=== PATIENT | male | born 1935 | race Caucasian/White ===

== ENCOUNTER 2017-05-09 11:59 | Emergency (ER) | payer MEDICARE, OTHER ==
[2017-05-09 12:56] LABS: #Lymphocytes 0.6 thou/uL (1.20-3.40); #Monocytes 0.6 thou/uL (0.11-0.59); #Neutrophils 6.5 thou/uL (1.40-6.50); %Basophils 0.3 % (0.0-1.0); %Eosinophils 0.2 % (0.0-10.0); %Lymphocytes 7.4 % (21.0-51.0); %Monocytes 7.7 % (0.0-10.0); Anion Gap 16 mmol/L (10-20); BUN (Urea Nitrogen) 20 mg/dL (8.4-25.7); Calc. Creatinine Clearance 0 mL/min (70-130); Calcium 8.4 mg/dL (7.8-10.44); Carbon Dioxide 22 mmol/L (23-31); Chloride 108 mmol/L (98-107); Estimated GFR-MDRD 65; Hematocrit 39.4 % (42.0-52.0); Red Blood Cell (RBC) Count 4.21 mill/uL (4.70-6.10); White Blood Cell (WBC) Count 7.7 thou/uL (4.8-10.8)
[2017-05-09 13:00] LABS: Bilirubin Small (Negative); Blood, Urine Negative (Negative); Glucose, Urine (Dipstick) Negative (Negative); Ketone, Urine 15 mg/dL (Negative); Nitrite Negative (Negative); Protein, Urine (Dipstick) 30 mg/dL (Neg-Trace); Urobilinogen 0.2 mg/dL (0.2-1.0)
[2017-05-09 13:00] LABS: Troponin I 0.018 ng/mL (< 0.028)
[2017-05-09 13:06] LABS: Bacteria/HPF 1+ HPF (None Seen); Squamous Epithelial 0-3 HPF (0-3); WBC/HPF 0-3 HPF (0-3)
[2017-05-09 13:08] LABS: Hyaline Casts/LPF 0-3 HYALINE CAST LPF (0-3 Hyaline)
--- NOTE | 2017-05-09 14:26 | RAD ---
2 VIEWS CHEST: Date: 05/09/17 HISTORY: Fever. FINDINGS: PA and lateral views chest obtained. The lungs are well aerated. No evidence of active intrathoracic disease is seen. No evidence of effus ions, pneumonia, or pneumothorax seen. IMPRESSION: Normal 2 views chest. POS: [facility]
== END 2017-05-09 13:35 | disposition home or self-care (01) ==
LOC: SCSER 11:59
DX: B34.9 Viral infection, unspecified (principal)
CPT/HCPCS: 36415; 71020; 80048; 81003; 81015; 82553; 84484; 85025; 93005

== ENCOUNTER 2017-08-01 09:51 | Emergency (ER) | payer MEDICARE, OTHER ==
[2017-08-01 10:15] LABS: #Lymphocytes 0.8 thou/uL (1.20-3.40); #Monocytes 0.7 thou/uL (0.11-0.59); #Neutrophils 10.9 thou/uL (1.40-6.50); %Basophils 0.3 % (0.0-1.0); %Monocytes 5.4 % (0.0-10.0); %Neutrophils 88.2 % (42.0-75.0); Hemoglobin 13.9 g/dL (14.0-18.0); Mean Corpuscular HGB CONC 34.4 g/dL (32.0-36.0); Mean Corpuscular Hemoglobin 31.1 pg (27.0-31.0); Mean Corpuscular Volume 90.6 fl (80.0-94.0); Mean Platelet Volume 9.5 fL (7.4-10.4); Platelet Count 133 thou/uL (130-400); RBC Distribution Width 11.6 % (11.5-14.5); Red Blood Cell (RBC) Count 4.46 mill/uL (4.70-6.10); White Blood Cell (WBC) Count 12.3 thou/uL (4.8-10.8)
[2017-08-01 10:27] LABS: Anion Gap 16 mmol/L (10-20); BUN (Urea Nitrogen) 18 mg/dL (8.4-25.7); CK (CPK) 66 U/L (30-200); Calc. Creatinine Clearance 0 mL/min (70-130); Calcium 9.1 mg/dL (7.8-10.44); Carbon Dioxide 21 mmol/L (23-31); Chloride 107 mmol/L (98-107); Estimated GFR-MDRD 61; Glucose 148 mg/dL (83-110); Sodium 140 mmol/L (136-145)
[2017-08-01 10:31] LABS: CKMB 1.2 ng/mL (0-6.6); Troponin I Less than 0.010 ng/mL (< 0.028)
--- NOTE | 2017-08-01 13:23 | RAD ---
CHEST PA AND LATERAL: HISTORY: An 82-year-old male with a history of abdominal pain with nausea and vomiting and weakness. COMPARISON: 05/09/17. FINDINGS: Patchy alveolar parenchymal changes noted in the right mid and lower lung zone which appears to be in the right lower lobe including the superior segment of the right lower lobe, evidence for pneumonia. Heart size is normal. The left lung is clear. IMPRESSION: Right lower lobe including superior segment pneumonia. Followup for complete clearing suggested. POS: [facility]
== END 2017-08-01 13:05 | disposition home or self-care (01) ==
LOC: SCSER 09:51
DX: J18.9 Pneumonia, unspecified organism (principal); I10 Essential (primary) hypertension; Z79.899 Other long term (current) drug therapy
CPT/HCPCS: 71046; 80048; 82553; 84484; 85025; 87804; 93005; 96361; 96365; 96366; J1956

== ENCOUNTER 2017-08-20 13:30 | Outpatient (CLI) | payer MEDICARE, OTHER | END 2017-08-20 13:31 | disposition home or self-care (01) | LOC: BICRAD 13:30 | PROVIDERS: ATTEND Family Medicine | DX: J18.9 Pneumonia, unspecified organism (principal) | CPT/HCPCS: 71046 ==

== ENCOUNTER 2018-01-27 11:14 | Outpatient (CLI) | payer MEDICARE, OTHER | END 2018-01-27 11:15 | disposition home or self-care (01) | LOC: BICRAD 11:14 | PROVIDERS: ATTEND Family Medicine | DX: J18.9 Pneumonia, unspecified organism (principal); I70.0 Atherosclerosis of aorta | CPT/HCPCS: 71046 ==

== ENCOUNTER 2018-07-05 10:11 | Outpatient (CLI) | payer MEDICARE, OTHER ==
--- NOTE | 2018-07-05 10:58 | RAD ---
CHEST TWO VIEWS: History: Dyspnea. Comparison: 01-27-18 FINDINGS: Heart size is within normal limits. The lungs are clear. No confluent pneumonia, overt edema, or pleu ral effusion. IMPRESSION: No acute intrathoracic disease. Atherosclerosis of the aorta. POS: [facility]
== END 2018-07-05 10:12 | disposition home or self-care (01) ==
LOC: RAD 10:11
PROVIDERS: ATTEND Internal Medicine
DX: R06.00 Dyspnea, unspecified (principal); I70.0 Atherosclerosis of aorta
CPT/HCPCS: 71046

== ENCOUNTER 2018-08-02 19:30 | Outpatient (CLI) | payer MEDICARE, OTHER | END 2018-08-02 19:31 | disposition home or self-care (01) | LOC: SLEEPLAB 19:30 | PROVIDERS: ATTEND Internal Medicine | DX: G47.33 Obstructive sleep apnea (adult) (pediatric) (principal); G47.00 Insomnia, unspecified; K21.9 Gastro-esophageal reflux disease without esophagitis; G47.61 Periodic limb movement disorder; R53.83 Other fatigue; R06.83 Snoring; R35.1 Nocturia | CPT/HCPCS: 95810 ==

== ENCOUNTER 2018-08-18 09:52 | Outpatient (CLI) | payer MEDICARE, OTHER ==
--- NOTE | 2018-08-18 10:58 | CT ---
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 Contrast-enhanced CT of the chest is performed. There is a 10.6 mm ill-defined right lower lobe lung parenchymal mass. This may represent an area of scar or represent a right malignant process. The area was not present on the patient's previous CT of the chest from 08/27/2011. Some minimal areas of interstitial and nodular lung densities also developed in the right lower lobe more lateral in the posterior aspect of the right lower lobe. These lesions are too small to characte rize correlate with follow-up CT. Areas of hypodensity seen in the liver somewhat present on the previous exam back in 2011 while other s developed. I suspect that they likely represent cysts although if there is concern for metastatic d isease correlation with the prepostcontrast enhanced dynamic CT images of abdomen is recommended. No definite evidence of lymphadenopathy seen. Coronary artery calcifications seen. Cortical cyst seen in the midpole of the right kidney. This has increased in size since the previous comparison CT. IMPRESSION: Areas of right lower lobe densities possibly representing areas of scar although metastat ic disease cannot be excluded. Correlation with pet imaging may be of use.
== END 2018-08-18 09:53 | disposition home or self-care (01) ==
LOC: BICCT 09:52
PROVIDERS: ATTEND Internal Medicine
DX: R04.2 Hemoptysis (principal); K21.9 Gastro-esophageal reflux disease without esophagitis; J18.9 Pneumonia, unspecified organism; J98.4 Other disorders of lung
CPT/HCPCS: 71260; 82565

== ENCOUNTER 2019-02-22 09:05 | Outpatient (CLI) | payer MEDICARE, OTHER ==
--- NOTE | 2019-02-22 09:39 | CT ---
CT Chest WO Con HISTORY: Follow-up of pulmonary nodules. COMPARISON: CT examination of 08/18/2018. FINDINGS: The areas of slight nodularity and linear parenchymal change within the right lower lobe read ve resolved. Specifically the area of a 10.6 mm area of pleural-based nodularity is no longer present. No new process. Lungs are clear of any infiltrative process and no pleural effusions. No significant mediastinal or hilar lymphadenopathy. Coronary artery calcifications are present. Hypodensities within the liver and kidneys are statistically most likely cysts. IMPRESSION: Resolution of the nodular parenchymal change in the right lower lobe.
== END 2019-02-22 09:06 | disposition home or self-care (01) ==
LOC: BICCT 09:05
PROVIDERS: ATTEND Internal Medicine
DX: K21.9 Gastro-esophageal reflux disease without esophagitis (principal); R91.1 Solitary pulmonary nodule; R04.2 Hemoptysis; J98.4 Other disorders of lung
CPT/HCPCS: 71250

== ENCOUNTER 2021-12-17 11:24 | Outpatient (CLI) | payer MEDICARE, OTHER | END 2021-12-17 11:25 | disposition home or self-care (01) | LOC: BICRAD 11:24 | PROVIDERS: ATTEND Family Medicine | DX: R05.9 Cough, unspecified (principal) | CPT/HCPCS: 71046 ==

== ENCOUNTER 2022-07-09 09:35 | Outpatient (CLI) | payer MEDICARE, OTHER | END 2022-07-09 09:36 | disposition home or self-care (01) | LOC: BICRAD 09:35 | PROVIDERS: ATTEND Family Medicine | DX: R05.3 Chronic cough (principal) | CPT/HCPCS: 71046 ==